=== PATIENT | female | born 1945 | race Caucasian/White ===

== ENCOUNTER → 2017-10-16 14:16 | Outpatient (CLI) | payer MEDICARE, OTHER, SELFPAY ==
--- NOTE | 2017-10-16 14:18 | CA_ITS ---
PROCEDURE: 2-D M-mode and color Doppler study INDICATIONS FOR THE TEST: Chest pain COPD Heart Murmur Tobacco Smoking Palpitations Fatigue Syncope Edema Hypertension+Diabetes Mellitus Rheumatic Fever SOB SCHMID Obesity Hyperlipidemia+ Family History HD Additional History AF, CM, ABN EKG, LBBB. PT SCANNED UNDER THE WRONG NAME , THE NAME ON ECHO IMAGES IS NOT CORRECT. PATIENT INFORMATION HEIGHT: 65 WEIGHT:174 GENDER: Female B/P:119/64 2-D/M-MODE INTERPRETATION: 2-D MEASUREMENTS OBSERVED VALUES IN CMS Right Ventricular Dimension (RVDd) 2.3 Interventricular Septum (Thickness)(IVsd) 2.0 Left Ventricular Internal Dimensions(LVIDd) 3.5 Left Ventricular Posterior Wall (Thickness)(LVPWd) 1.8 Aortic Root 2.6 Aortic Cusp Separation 1.6 Left Atrial Dimensions (LAD) 4.8 2D 1. Left atrium is mildly enlarged, left ventricle is normal size, mild concentric left ventricular hypertrophy, visually estimated ejection fraction 45%, there is abnormal septal motion. 2. The right atrium and right ventricle are normal size and contractility. 3. The aortic valve is minimally thickened and fibrosed. 4. The mitral and tricuspid valve leaflets are minimally thickened. 5. The pulmonic valve is poorly visualized. 6. No significant pericardial effusion noted. DOPPLER INTERROGATION: Doppler interrogation of the aortic, mitral and tricuspid valvular presence of mild mitral and tricuspid regurgitation, calculated ventricular systolic pressure is 40 mmHg consistent mild pulmonary hypertension, grade 1 diastolic dysfunction seen with tissue Doppler evidence of raised left atrial pressure.. CONCLUSION: 1. Mildly left atrium, normal left ventricular size, mild concentric left ventricular hypertrophy, visually estimated ejection fraction 45%, there is abnormal septal motion. Grade 1 diastolic dysfunction seen with tissue Doppler evidence of raised left atrial pressure. 2. Mild mitral and tricuspid regurgitation 3. No significant pericardial effusion noted.
== END ==
PROVIDERS: PCP Physician Assistant; Visit Provider Internal Medicine
DX: I51.9 Heart disease, unspecified (principal); I10 Essential (primary) hypertension; I50.22 Chronic systolic (congestive) heart failure; I48.91 Unspecified atrial fibrillation; I42.9 Cardiomyopathy, unspecified
CPT/HCPCS: 93306

== ENCOUNTER → 2018-10-19 12:37 | Outpatient (CLI) | payer MEDICARE, OTHER, SELFPAY ==
--- NOTE | 2018-10-19 12:44 | CA_ITS ---
PROCEDURE: 2-D M-mode and color Doppler study INDICATIONS FOR THE TEST: Chest pain COPD Heart Murmur Tobacco Smoking Palpitations Fatigue Syncope Edema Hypertension+Diabetes Mellitus Rheumatic Fever SOB SCHMID+Obesity Hyperlipidemia+ Family History HD Additional History CM, 45% EF 10/2017 PATIENT INFORMATION HEIGHT: 67 WEIGHT: 175 GENDER: Female B/P: 132/65 2-D/M-MODE INTERPRETATION: 2-D MEASUREMENTS OBSERVED VALUES IN CMS Right Ventricular Dimension (RVDd) 1.7 Interventricular Septum (Thickness)(IVsd) 0.9 Left Ventricular Internal Dimensions(LVIDd) 4.9 Left Ventricular Posterior Wall (Thickness)(LVPWd) 0.9 Aortic Root 2.6 Aortic Cusp Separation 1.8 Left Atrial Dimensions (LAD) 3.8 2D 1. Left atrium is mildly enlarged, left ventricle is normal size, mild concentric left ventricular hypertrophy, visually estimated ejection fraction 45% with marked abnormal septal motion. 2. The right atrium and right ventricle are normal size and contractility. 3. The aortic valve is minimally thickened and fibrosed. 4. The mitral and tricuspid valve leaflets are minimally thickened. 5. The pulmonic valve is poorly visualized. 6. No significant pericardial effusion noted. DOPPLER INTERROGATION: Doppler interrogation of the aortic, mitral and tricuspid valvular presence of mild mitral and tricuspid regurgitation, calculated right ventricular systolic pressure is 47 mmHg consistent with moderate pulmonary hypertension, grade 1 diastolic dysfunction seen with tissue Doppler evidence of raised left atrial pressure. CONCLUSION: 1. Mildly enlarged left atrium, normal left ventricular size, mild concentric left ventricular hypertrophy, visually estimated ejection fraction 45%, there is abnormal septal motion. Grade 1 diastolic dysfunction seen with tissue Doppler evidence of raised left atrial pressure. 2. Mild mitral and tricuspid regurgitation, calculated right ventricular systolic pressure is 47 mmHg consistent with moderate pulmonary hypertension. 3. No significant pericardial effusion noted.
== END ==
PROVIDERS: PCP Nurse Practitioner Family; Visit Provider Internal Medicine
DX: I10 Essential (primary) hypertension (principal); I27.20 Pulmonary hypertension, unspecified; I42.9 Cardiomyopathy, unspecified; I48.91 Unspecified atrial fibrillation; I50.22 Chronic systolic (congestive) heart failure
CPT/HCPCS: 93306

== ENCOUNTER → 2019-12-19 09:18 | Outpatient (CLI) | payer MEDICARE, OTHER, SELFPAY ==
--- NOTE | 2019-12-19 09:20 | CA_ITS ---
APPROVED REPORT EXAM: Comprehensive 2D, Doppler, and color-flow Echocardiogram [employer]: Soha Liao RDCS Ht: 5 ft 5 in Wt: 174lbs BSA: 1.86 BP: 87351/70 mmHg Indications: CM,HTN,AF,CHF 2D Dimensions LVOT 1.61 cm (M/F) 1.5-2.5 M-Mode Dimensions RVDd 2.39 cm (0.9-2.6) LVDd 4.21 cm (3.5-5.7) LVDs 3.26 cm (3.5-5.7) IVSd 1.10 cm (0.6-1.1) PWd 0.80 cm (0.6-1.1) EF (Teich) 45.80% FS 22.60% EDV (Teich) 79.00 mL ESV (Teich) 42.80 mL LV Diastology E/A Ratio 0.62 Mitral Valve MV A Velocity 99.00 (40-130 cm/s) Left Ventricle Left atrium is mildly enlarged, left ventricle is normal size, mild concentric left ventricular hypertrophy, visually estimated ejection fraction 45 to 50%, there is abnormal septal motion, grade 1 diastolic dysfunction seen without tissue Doppler evidence of raise left atrial pressure. Right Ventricle Right atrium and right ventricular normal size and contractility. Aortic Valve Aortic valve is minimally thickened and calcified, there is no aortic stenosis or aortic insufficiency. Mitral Valve Mitral valve leaflets are minimally thickened, there is mild mitral regurgitation. Tricuspid Valve Tricuspid valve is grossly normal, there is mild tricuspid regurgitation, calculated right ventricular systolic pressure 39 mmHg. Pulmonic Valve Pulmonic valve is poorly visualized. Great Vessels Aortic root is normal size. Pericardium No significant pericardial effusion noted. Conclusion 1. Mildly enlarged left atrium, normal left ventricular size, visually estimated ejection fraction 45 to 50%, there is abnormal septal motion, grade 1 diastolic dysfunction seen without tissue Doppler evidence of raise left atrial pressure. 2. Mild mitral and tricuspid regurgitation, calculated right ventricular systolic pressure 39 mmHg. 3. No significant pericardial effusion noted. Electronically signed by : Eduardo Dey, 12/19/2019 21:35:57
== END ==
PROVIDERS: PCP Nurse Practitioner Family; Visit Provider Nurse Practitioner Family
DX: I10 Essential (primary) hypertension (principal); I27.20 Pulmonary hypertension, unspecified; I42.9 Cardiomyopathy, unspecified; I48.91 Unspecified atrial fibrillation
CPT/HCPCS: 93306

== ENCOUNTER → 2021-04-03 06:41 | Outpatient (CLI) | payer MEDICARE, OTHER, SELFPAY ==
--- NOTE | 2021-04-03 06:43 | CA_ITS ---
APPROVED REPORT EXAM: Comprehensive 2D, Doppler, and color-flow Echocardiogram [employer]: Soha Liao RDCS Ht: 6 ft 5 in Wt: 160lbs BSA: 2.03 BP: 136/75 mmHg Indications: CHF,ABN EKG,CM,LBBB 2D Dimensions LVOT 1.57 cm (M/F) 1.5-2.5 M-Mode Dimensions RVDd 1.85 cm (0.9-2.6) LA Diam 3.83 cm (1.9-4.0) LVDd 4.86 cm (3.5-5.7) Ao Diam 3.51 cm (2.0-3.7) LVDs 4.42 cm (3.5-5.7) IVSd 1.12 cm (0.6-1.1) PWd 1.04 cm (0.6-1.1) EF (Teich) 20.00% FS 9.10% EDV (Teich) 110.70 mL TAPSE 1.87 (<1.7) ESV (Teich) 88.60 mL LV Diastology E Decel Time 207.00 (160-240 msec) E/A Ratio 0.7 MED E' 5.00 (< 7 cm/sec) E'/MED E' Ratio 14.32 (>14) LAT E' 6.50 (<10 cm/sec) E/LAT E' Ratio 11.02 (>14) Mitral Valve MV E Max Arnav. 72.00 (40-130 cm/s) MV A Velocity 104.00 (40-130 cm/s) E/A Ratio 0.69 MV Decel. Time 207.00 (160-240 ms) MV PHT 61.00 ms Tricuspid Valve TR P. Velocity 285.00 cm/s RAP Estimate 10.00 mmHg RVSP 42.50 mmHg Left Ventricle Left atrium is mildly enlarged, left ventricle is normal size, mild concentric left ventricular hypertrophy, there is abnormal septal motion, visually estimated ejection fraction 50% with no obvious regional wall motion abnormality, grade 1 diastolic dysfunction seen without tissue Doppler evidence of raise left atrial pressure. Right Ventricle Right atrium and right ventricle are normal size and contractility. Aortic Valve Aortic valve is thickened and calcified without aortic stenosis, there is trace aortic insufficiency. Mitral Valve Mitral valve is minimally thickened, there is mild mitral regurgitation. Tricuspid Valve Tricuspid valve grossly normal, there is mild tricuspid regurgitation, tricuspid regurgitation jet velocity is inadequate for calculation of the right ventricular systolic pressure. Pulmonic Valve Pulmonic valve is poorly visualized. Great Vessels Aortic root is normal size. Inferior vena cava is poorly visualized. Pericardium No significant pericardial effusion noted. Conclusion 1. Mildly enlarged left atrium, normal left ventricular size, mild concentric left ventricular hypertrophy, visually estimated ejection fraction 50%, there is abnormal septal motion. Grade 1 diastolic dysfunction seen without tissue Doppler evidence of raise left atrial pressure. 2. Mild mitral and tricuspid regurgitation. 3. No significant pericardial effusion noted. Electronically signed by : Eduardo Dey MD 04/03/2021 20:10:13
== END ==
PROVIDERS: PCP Nurse Practitioner Family; Visit Provider Urology
DX: I10 Essential (primary) hypertension (principal); I27.20 Pulmonary hypertension, unspecified; I42.9 Cardiomyopathy, unspecified; I48.91 Unspecified atrial fibrillation
CPT/HCPCS: 93306

== ENCOUNTER → 2021-04-19 12:04 | Outpatient (CLI) | payer MEDICARE, OTHER, SELFPAY ==
[2021-04-19 13:04] LABS: Chloride 104 mmol/L (98-107); Sodium 139 mmol/L (136-145)
[2021-04-19 13:05] LABS: Potassium 4.7 mmoL/L (3.5-5.1)
[2021-04-19 13:07] LABS: Blood Urea Nitrogen 19 mg/dl (7-17); Estimated Glomerular Filt Rate 54 ml/min (>60); GFR (African American) 65 ML/MIN (>60)
[2021-04-19 13:08] LABS: Anion Gap 12.7 mEq/L (5-15); Calcium 9.1 mg/dl (8.4-10.2); Carbon Dioxide 27 mmol/L (22.0-30.0); Glucose 96 mg/dl (74-100)
[2021-04-19 15:40] LABS: Basophils % 0.4 % (0.1-2.0); Eosinophils # 0.1 K/mm3 (0.0-0.4); Eosinophils % 1.8 % (0.1-12.0); Hematocrit 36.1 % (37.0-47.0); Hemoglobin 12.4 g/dL (12.2-16.2); Lymphocytes # 1.9 K/mm3 (0.7-4.5); Lymphocytes % 32.8 % (10-50); Mean Corpuscular HGB Conc 34.3 g/dL (31.8-35.4); Mean Corpuscular Volume 81.4 fl (81-99); Mean Platelet Volume 8.8 fl (7.4-10.4); Monocytes # 0.4 K/mm3 (0.1-1.0); Monocytes % 6.7 % (1.7-9.3); Neutrophils # 3.4 K/mm3 (1.8-7.8); Neutrophils % 58.2 % (37.0-80.0); Platelet Count 352 K/mm3 (142-424); Red Blood Count 4.43 M/mm3 (4.20-5.40); Red Cell Distribution Width 13.4 % (11.5-17.5); White Blood Count 5.8 K/mm3 (4.8-10.8)
== END ==
PROVIDERS: Visit Provider Nurse Practitioner Family
DX: I10 Essential (primary) hypertension (principal); I27.20 Pulmonary hypertension, unspecified; I42.9 Cardiomyopathy, unspecified; I48.91 Unspecified atrial fibrillation; I50.22 Chronic systolic (congestive) heart failure; I51.89 Other ill-defined heart diseases; R93.1 Abnormal findings on diagnostic imaging of heart and coronary circulation; R94.31 Abnormal electrocardiogram [ECG] [EKG]; Z01.812 Encounter for preprocedural laboratory examination; Z11.52 Encounter for screening for COVID-19
CPT/HCPCS: 36415; 80048; 85025; C9803; U0003; U0005

== ENCOUNTER 2021-04-22 08:15 | Day surgery (SDC) | payer MEDICARE, OTHER, SELFPAY ==
[2021-04-22] VITALS (12 sets, daily range): BP systolic 94–180; BP diastolic 52–89; PULSE 62–76; RESP 18; TEMP 36.6–36.7; O2SAT 92–98; BMI 28.3
--- NOTE | 2021-04-22 07:11 | IR_ITS ---
APPROVED REPORT Patient Location: Outpatient [employer] Tutor: ALEJANDRO Hawley RT (R) PROCEDURES Left heart catheterization Left ventriculogram Selective coronary angiogram INDICATION Abnormal echocardiogram, Left bundle branch block Informed consent was obtained prior to the procedure. COMPLICATIONS NONE Estimated Blood Loss: LESS THAN 10 ML TECHNIQUE One percent lidocaine used to anesthetize the right anterior aspect of the wrist. The right radial artery was accessed via the Seldinger technique. A 6 Mont[place]gr[place] sheath was placed in the right radial artery. 2.5 mg of verapamil, 800 mcg of nitroglycerin, 1mg Lidocaine and 5000 U Heparin were given through the arterial sheath. The Poppa catheter was also used to perform left heart catheterization, left ventriculogram and selective coronary angiogram. At the end of the procedure the sheath was removed good hemostasis was achieved using Traclet band, patient was transferred to the postop holding area in stable condition. ANGIOGRAPHIC RESULTS The left main artery Normal The left anterior descending artery Normal The circumflex artery Dominant normal The right coronary artery Nondominant normal The ESTEVEZ ventriculogram reveals Normal 65% The left ventricular end-diastolic pressure 10 mmHg IMPRESSION Normal coronary arteries Normal ejection fraction Normal left ventricular end-diastolic pressure PLAN 1. Consider loop recorder for syncope/dizziness Electronically signed by : Estuardo Tesfaye MD 04/22/2021 09:14:08
== END 2021-04-22 12:48 | disposition home or self-care (01) ==
LOC: CATHLAB 08:17
PROVIDERS: PCP Nurse Practitioner Family; Visit Provider Internal Medicine
DX: R42 Dizziness and giddiness (principal); R93.1 Abnormal findings on diagnostic imaging of heart and coronary circulation; I27.20 Pulmonary hypertension, unspecified; I42.9 Cardiomyopathy, unspecified; I48.91 Unspecified atrial fibrillation; I50.22 Chronic systolic (congestive) heart failure; R94.31 Abnormal electrocardiogram [ECG] [EKG]; I44.7 Left bundle-branch block, unspecified; I11.0 Hypertensive heart disease with heart failure
CPT/HCPCS: 93458; 99152; C1725; C1769; J1644; Q9967

== ENCOUNTER → 2022-02-19 20:02 | Outpatient (CLI) | payer MEDICARE, OTHER, SELFPAY ==
[2022-02-13 09:59] LABS: Alanine Aminotransferase 21 U/L (12-78); Albumin Level 4.4 g/dl (3.5-5.0); Albumin/Globulin Ratio 1.4 (1.1-1.8); Alkaline Phosphatase 122 U/L (38-126); Anion Gap 17.6 mEq/L (5-15); Aspartate Amino Transferase 29 U/L (14-36); Bilirubin,Total 1.1 mg/dl (0.2-1.3); Blood Urea Nitrogen 19 mg/dl (7-17); Calcium 9.2 mg/dl (8.4-10.2); Carbon Dioxide 25 mmol/L (22.0-30.0); Chloride 102 mmol/L (98-107); Chol/HDL Ratio 2.9 (1-3.5); Cholesterol 181 mg/dl (140-200); Estimated Glomerular Filt Rate 61 ml/min (>60); GFR (African American) 74 ML/MIN (>60); Globulin 3.2 g/dL (1.3-3.2); Glucose 107 mg/dl (74-100); HDL Cholesterol 62 mg/dl (40-60); Potassium 4.6 mmoL/L (3.5-5.1); Sodium 140 mmol/L (136-145); Total Protein,Serum 7.6 g/dl (6.3-8.2); Triglycerides 126 mg/dl (30-150); VLDL Cholesterol 25 mg/dL (0-40)
[2022-02-13 10:09] LABS: Direct LDL Cholesterol 77.42 mg/dL (100-129)
[2022-02-13 10:29] LABS: Thyroid Stimulating Hormone 1.43 uIU/mL (0.465-4.68)
[2022-02-19 20:39] LABS: Basophils % 0.7 % (0.1-2.0); Eosinophils # 0.1 K/mm3 (0.0-0.4); Eosinophils % 2.3 % (0.1-12.0); Hematocrit 38.6 % (37.0-47.0); Hemoglobin 12.5 g/dL (12.2-16.2); Lymphocytes # 1.9 K/mm3 (0.7-4.5); Lymphocytes % 30.1 % (10-50); Mean Corpuscular HGB Conc 32.4 g/dL (31.8-35.4); Mean Corpuscular Hemoglobin 26.9 pg (27.0-31.2); Mean Corpuscular Volume 83.2 fl (81-99); Mean Platelet Volume 9.6 fl (7.4-10.4); Monocytes # 0.4 K/mm3 (0.1-1.0); Monocytes % 6.5 % (1.7-9.3); Neutrophils # 3.7 K/mm3 (1.8-7.8); Neutrophils % 60.5 % (37.0-80.0); Platelet Count 400 K/mm3 (142-424); Red Blood Count 4.64 M/mm3 (4.20-5.40); Red Cell Distribution Width 13.4 % (11.5-17.5); White Blood Count 6.2 K/mm3 (4.8-10.8)
[2022-02-19 21:27] LABS: Hemoglobin A1C 5.5 % (4.0-6.0)
== END ==
PROVIDERS: PCP Family Medicine; Visit Provider Family Medicine
DX: I10 Essential (primary) hypertension (principal); Z79.899 Other long term (current) drug therapy
CPT/HCPCS: 80053; 80061; 83036; 84443; 85025

== ENCOUNTER → 2022-09-04 09:44 | Outpatient (CLI) | payer MEDICARE, OTHER, SELFPAY ==
[2022-09-04 10:19] LABS: Basophils % 0.2 % (0.1-2.0); Eosinophils # 0.1 K/mm3 (0.0-0.4); Eosinophils % 0.7 % (0.1-12.0); Hematocrit 34.6 % (37.0-47.0); Hemoglobin 11.3 g/dL (12.2-16.2); Lymphocytes # 0.9 K/mm3 (0.7-4.5); Mean Corpuscular HGB Conc 32.6 g/dL (31.8-35.4); Mean Corpuscular Hemoglobin 26.8 pg (27.0-31.2); Mean Platelet Volume 7.3 fl (7.4-10.4); Monocytes # 0.7 K/mm3 (0.1-1.0); Monocytes % 7.6 % (1.7-9.3); Neutrophils % 81.4 % (37.0-80.0); Platelet Count 278 K/mm3 (142-424); Red Blood Count 4.22 M/mm3 (4.20-5.40); Red Cell Distribution Width 13.2 % (11.5-17.5); White Blood Count 8.6 K/mm3 (4.8-10.8)
[2022-09-04 11:50] LABS: Chloride 93 mmol/L (98-107); Potassium 4.1 mmoL/L (3.5-5.1); Sodium 133 mmol/L (136-145)
[2022-09-04 11:52] LABS: Alanine Aminotransferase 32 U/L (12-78); Albumin Level 4.3 g/dl (3.5-5.0); Albumin/Globulin Ratio 1.3 (1.1-1.8); Alkaline Phosphatase 77 U/L (38-126); Anion Gap 18.1 mEq/L (5-15); Aspartate Amino Transferase 45 U/L (14-36); Bilirubin,Total 1.3 mg/dl (0.2-1.3); Blood Urea Nitrogen 25 mg/dl (7-17); Carbon Dioxide 26 mmol/L (22.0-30.0); Estimated Glomerular Filt Rate 40 ml/min (>60); GFR (African American) 48 ML/MIN (>60); Globulin 3.2 g/dL (1.3-3.2); Total Protein,Serum 7.5 g/dl (6.3-8.2)
[2022-09-04 11:53] LABS: Calcium 8.6 mg/dl (8.4-10.2); Chol/HDL Ratio 2.4 (1-3.5); Cholesterol 168 mg/dl (140-200); Glucose 110 mg/dl (74-100); HDL Cholesterol 70 mg/dl (40-60); Triglycerides 108 mg/dl (30-150); VLDL Cholesterol 22 mg/dL (0-40)
[2022-09-04 12:04] LABS: Direct LDL Cholesterol 68.65 mg/dL (100-129)
== END ==
PROVIDERS: PCP Family Medicine; Visit Provider Family Medicine
DX: E78.5 Hyperlipidemia, unspecified (principal); I10 Essential (primary) hypertension; I27.20 Pulmonary hypertension, unspecified; R42 Dizziness and giddiness; R41.0 Disorientation, unspecified
CPT/HCPCS: 36415; 80053; 80061; 85025

== ENCOUNTER → 2022-09-05 16:38 | Outpatient (CLI) | payer MEDICARE, OTHER, SELFPAY ==
[2022-09-05 17:10] LABS: Microscopic, Urine URINE MICROSCOPIC (MICROSCOPIC)
[2022-09-05 18:46] LABS: Appearance,Urine SL CLOUDY (Clear); Blood, Urine 2+ (Negative); Color,Urine DK YELLOW (Yellow); Glucose,Urine (UA) Negative (Negative); Ketones,Urine TRACE (Negative); Leukocyte Esterase,Urine 1+ (Negative); Nitrate,Urine Negative (Negative); PH,Urine 5.5 (5.0-8.5); Protein,Urine 2+ (Negative); Specific Gravity, Urine >= 1.030 (1.005-1.030); Urobilinogen,Urine 0.2 EU/dl (0.2)
[2022-09-05 18:52] LABS: Bilirubin,Urine 1+ (Negative)
[2022-09-05 18:53] LABS: Amorphous Sediment,Urine Trace /lpf; Bacteria,Urine 1+ /lpf
== END ==
PROVIDERS: PCP Family Medicine; Visit Provider Family Medicine
DX: E78.5 Hyperlipidemia, unspecified (principal); I10 Essential (primary) hypertension; I27.20 Pulmonary hypertension, unspecified; R42 Dizziness and giddiness; B96.29 Other Escherichia coli [E. coli] as the cause of diseases classified elsewhere; R82.90 Unspecified abnormal findings in urine
CPT/HCPCS: 81001; 87086; 87088; 87186

== ENCOUNTER → 2023-02-03 09:27 | Outpatient (CLI) | payer MEDICARE, OTHER, SELFPAY ==
[2023-02-03 10:03] LABS: Basophils % 0.2 % (0.1-2.0); Eosinophils # 0.1 K/mm3 (0.0-0.4); Eosinophils % 1.1 % (0.1-12.0); Hematocrit 36.1 % (37.0-47.0); Hemoglobin 11.7 g/dL (12.2-16.2); Lymphocytes # 1.6 K/mm3 (0.7-4.5); Lymphocytes % 17.9 % (10-50); Mean Corpuscular HGB Conc 32.3 g/dL (31.8-35.4); Mean Corpuscular Hemoglobin 24.4 pg (27.0-31.2); Mean Corpuscular Volume 75.5 fl (81-99); Mean Platelet Volume 8.1 fl (7.4-10.4); Monocytes # 0.5 K/mm3 (0.1-1.0); Monocytes % 5.3 % (1.7-9.3); Neutrophils # 6.9 K/mm3 (1.8-7.8); Neutrophils % 75.4 % (37.0-80.0); Platelet Count 466 K/mm3 (142-424); Red Blood Count 4.78 M/mm3 (4.20-5.40); Red Cell Distribution Width 15.1 % (11.5-17.5); White Blood Count 9.1 K/mm3 (4.8-10.8)
[2023-02-03 11:01] LABS: Free T4 (Free Thyroxine) 1.08 ng/dl (0.78-2.19)
[2023-02-03 11:25] LABS: Chloride 105 mmol/L (98-107); Potassium 4.6 mmoL/L (3.5-5.1); Sodium 140 mmol/L (136-145)
[2023-02-03 11:27] LABS: Bilirubin,Unconjugated 0.6 mg/dL (0.0-1.1); Blood Urea Nitrogen 20 mg/dl (7-17); Estimated Glomerular Filt Rate 61 ml/min (>60); GFR (African American) 73 ML/MIN (>60)
[2023-02-03 11:28] LABS: Alanine Aminotransferase 17 U/L (12-78); Albumin Level 3.8 g/dl (3.5-5.0); Alkaline Phosphatase 89 U/L (38-126); Anion Gap 12.6 mEq/L (5-15); Aspartate Amino Transferase 22 U/L (14-36); Bilirubin,Direct 0.2 mg/dl (0.0-0.4); Bilirubin,Indirect 0.6 mg/dL (0.0-0.9); Bilirubin,Total 0.8 mg/dl (0.2-1.3); Calcium 8.7 mg/dl (8.4-10.2); Carbon Dioxide 27 mmol/L (22.0-30.0); Chol/HDL Ratio 3.3 (1-3.5); Cholesterol 139 mg/dl (140-200); Glucose 107 mg/dl (74-100); HDL Cholesterol 42 mg/dl (40-60); Total Protein,Serum 7.5 g/dl (6.3-8.2); Triglycerides 114 mg/dl (30-150); VLDL Cholesterol 23 mg/dL (0-40)
== END ==
PROVIDERS: PCP Family Medicine; Visit Provider Nurse Practitioner
DX: E78.5 Hyperlipidemia, unspecified (principal); I42.9 Cardiomyopathy, unspecified; I48.91 Unspecified atrial fibrillation; I50.22 Chronic systolic (congestive) heart failure; I11.0 Hypertensive heart disease with heart failure
CPT/HCPCS: 36415; 80048; 80061; 80076; 83735; 84439; 84443; 85025

== ENCOUNTER 2023-08-18 11:11 | Outpatient (CLI) | payer MEDICARE, OTHER, SELFPAY ==
--- NOTE | 2023-08-18 11:18 | XR_ITS ---
FINAL REPORT CLINICAL HISTORY: left knee effusion nki FINDINGS: Left knee Three views were obtained. There is no acute fracture or dislocation. The joint spaces appear normal. No joint effusion is identified. No soft tissue abnormality is identified. IMPRESSION: No acute process. Reviewed, Interpreted and Dictated by Jluis Teixeiar MD Transcribed by Terrie Ramirez Authenticated and [facility][1]
[2023-08-18 12:03] LABS: Basophils % 0.3 % (0.1-2.0); Eosinophils # 0.1 K/mm3 (0.0-0.4); Eosinophils % 0.7 % (0.1-12.0); Hematocrit 33.5 % (37.0-47.0); Lymphocytes # 1.9 K/mm3 (0.7-4.5); Lymphocytes % 19.1 % (10-50); Mean Corpuscular HGB Conc 32.9 g/dL (31.8-35.4); Mean Corpuscular Hemoglobin 26.7 pg (27.0-31.2); Mean Corpuscular Volume 81.1 fl (81-99); Monocytes # 0.9 K/mm3 (0.1-1.0); Monocytes % 8.8 % (1.7-9.3); Platelet Count 429 K/mm3 (142-424); Red Blood Count 4.13 M/mm3 (4.20-5.40); Red Cell Distribution Width 13.4 % (11.5-17.5); White Blood Count 9.9 K/mm3 (4.8-10.8)
[2023-08-18 12:46] LABS: Alanine Aminotransferase 14 U/L (12-78); Albumin Level 4.1 g/dl (3.5-5.0); Alkaline Phosphatase 75 U/L (38-126); Anion Gap 12.9 mEq/L (5-15); Aspartate Amino Transferase 21 U/L (14-36); Bilirubin,Direct 0.1 mg/dl (0.0-0.4); Bilirubin,Indirect 1.2 mg/dL (0.0-0.9); Bilirubin,Total 1.3 mg/dl (0.2-1.3); Bilirubin,Unconjugated 1.2 mg/dL (0.0-1.1); Blood Urea Nitrogen 23 mg/dl (7-17); Calcium 9.2 mg/dl (8.4-10.2); Carbon Dioxide 27 mmol/L (22.0-30.0); Chloride 105 mmol/L (98-107); Chol/HDL Ratio 2.1 (1-3.5); Cholesterol 155 mg/dl (140-200); Estimated Glomerular Filt Rate 54 ml/min (>60); GFR (African American) 65 ML/MIN (>60); Glucose 109 mg/dl (74-100); HDL Cholesterol 73 mg/dl (40-60); Magnesium 2.3 mg/dl (1.6-2.3); Potassium 3.9 mmoL/L (3.5-5.1); Sodium 141 mmol/L (136-145); Total Protein,Serum 7.6 g/dl (6.3-8.2); Triglycerides 83 mg/dl (30-150); VLDL Cholesterol 17 mg/dL (0-40)
[2023-08-18 12:57] LABS: Direct LDL Cholesterol 57.52 mg/dL (100-129)
[2023-08-18 13:17] LABS: Thyroid Stimulating Hormone 1.36 uIU/mL (0.465-4.68)
== END 2023-08-18 23:59 | disposition home or self-care (01) ==
LOC: LAB 11:13
PROVIDERS: PCP Family Medicine; Visit Provider Nurse Practitioner
DX: M25.562 Pain in left knee (principal); E78.5 Hyperlipidemia, unspecified; I44.7 Left bundle-branch block, unspecified; I11.0 Hypertensive heart disease with heart failure; I50.22 Chronic systolic (congestive) heart failure; R94.31 Abnormal electrocardiogram [ECG] [EKG]; I27.20 Pulmonary hypertension, unspecified; I42.8 Other cardiomyopathies; I48.91 Unspecified atrial fibrillation
CPT/HCPCS: 36415; 73562; 80048; 80061; 80076; 83735; 84439; 84443; 85025

== ENCOUNTER 2023-09-08 07:43 | Outpatient (CLI) | payer MEDICARE, OTHER, SELFPAY ==
--- NOTE | 2023-09-08 07:51 | CA_ITS ---
APPROVED REPORT EXAM: Comprehensive 2D, Doppler, and color-flow Echocardiogram [employer]: GAVIOTA Rangel, RVS Ht: 5 ft 5 in Wt: 151lbs BSA: 1.76 BP: 123/74 mmHg Indications: CHF, CM, LBBB, Pulmoanry HTN 2D Dimensions IVSd 0.99 cm LVEF (Visual) 56.20 % PWd 1.18 cm LA Volume 72.00 mL LVDd 5.55 cm LA Volume Index 40.938120 mL/m2 (M/F) 16-34 LVDs 3.90 cm Left Atrium 3.70 cm M-Mode Dimensions LA Diam 3.35 cm (1.9-4.0) EPSs 1.60 cm TAPSE 2.30 (<1.7) LV Diastology E Decel Time 170 (160-240 msec) E/A Ratio 0.54 MED A' 10.50 cm/s LAT A' 16.30 cm/s Aortic Valve KATARZYNA Index 1.47 cm2/m2 AoV Peak Arnav. 167.0 (50-130 cm/s) AO Peak GR. 11.20 mmHg AO Mean GR. 5.50 (<5 mmHg) AO VTI 34.4 (18-25 cm) KATARZYNA (VTI) 2.64 (2.5-4.5 cm2) Mitral Valve MV A Velocity 140.0 (40-130 cm/s) E/A Ratio 0.54 Pulmonary Valve PV Peak Velocity 91.0 (50-150 cm/s) Tricuspid Valve TR P. Velocity 270.00 cm/s RAP Estimate 10.00 mmHg RVSP 39.10 mmHg Left Ventricle The left ventricle is normal size. The left ventricular systolic function is low-normal. There is increased LV wall thickness. The septum is asynchronous. Diastolic function is indeterminate. LVEF is 50-55% Right Ventricle The right ventricle is normal size. The right ventricular systolic function is normal. Atria Left atrium is moderately dilated. Right atrium is moderately dilated. There is no Doppler evidence of interatrial shunt. Aortic Valve The aortic valve is mildly thickened. There is no aortic valvular stenosis. Trace aortic regurgitation. Mitral Valve The mitral valve is mildly thickened. No evidence of mitral valve stenosis. Mild mitral regurgitation. Tricuspid Valve The tricuspid valve leaflets are thin and pliable. Mild tricuspid regurgitation. RVSP is 25-30 mmHg. Pulmonic Valve The pulmonary valve is normal in structure. Trace pulmonic regurgitation. Great Vessels The aortic root is normal in size. The ascending aorta is normal in size. IVC is normal in size and collapses >50% with inspiration. Pericardium There is no pericardial effusion. Other Information Study Quality: Fair Conclusion Normal biventricular systolic function. Asynchronous septum. Moderate biatrial dilation. Mild MR, mild TR. Electronically signed by : Tanesha Caal MD 09/11/2023 19:31:39
== END 2023-09-08 23:59 | disposition home or self-care (01) ==
LOC: RT 07:45
PROVIDERS: PCP Family Medicine; Visit Provider Nurse Practitioner
DX: I50.22 Chronic systolic (congestive) heart failure (principal); E78.5 Hyperlipidemia, unspecified; I44.7 Left bundle-branch block, unspecified; R94.31 Abnormal electrocardiogram [ECG] [EKG]; I27.20 Pulmonary hypertension, unspecified; I42.8 Other cardiomyopathies; I48.91 Unspecified atrial fibrillation; I11.0 Hypertensive heart disease with heart failure
CPT/HCPCS: 93306

== ENCOUNTER 2024-08-22 17:43 | Outpatient (CLI) | payer MEDICARE, OTHER, SELFPAY ==
[2024-08-22 19:37] LABS: Basophils % 0.4 % (0.1-2.0); Eosinophils # 0.1 Kmm3 (0.0-0.4); Eosinophils % 2.5 % (0.1-12.0); Hematocrit 36.1 % (37.0-47.0); Hemoglobin 11.3 g/dL (12.2-16.2); Lymphocytes # 1.9 K/mm3 (0.7-4.5); Lymphocytes % 33.2 % (10-50); Mean Corpuscular HGB Conc 31.3 g/dL (31.8-35.4); Mean Corpuscular Hemoglobin 26.8 pg (27.0-31.2); Mean Corpuscular Volume 85.5 fl (81-99); Mean Platelet Volume 9.8 fl (7.4-10.4); Monocytes # 0.5 K/mm3 (0.1-1.0); Monocytes % 9.3 % (1.7-9.3); Neutrophils # 3.1 K/mm3 (1.8-7.8); Neutrophils % 54.4 % (37.0-80.0); Nucleated Red Blood Cells # 0 10^3/uL; Nucleated Red Blood Cells % 0 %; Platelet Count 327 K/mm3 (142-424); Red Blood Count 4.22 M/mm3 (4.20-5.40); Red Cell Distribution Width 12.9 % (11.5-17.5); Red Cell Distribution Width-SD 39.8 fL; White Blood Count 5.6 K/mm3 (4.8-10.8)
[2024-08-22 20:12] LABS: Albumin Level 4.5 g/dl (3.5-5.0); Chloride 107 mmol/L (98-107); Sodium 139 mmol/L (136-145)
[2024-08-22 20:13] LABS: Potassium 4.5 mmoL/L (3.5-5.1)
[2024-08-22 20:15] LABS: Alanine Aminotransferase 20 U/L (12-78); Alkaline Phosphatase 69 U/L (38-126); Anion Gap 12.5 mEq/L (5-15); Aspartate Amino Transferase 27 U/L (14-36); Bilirubin,Direct 0.2 mg/dl (0.0-0.4); Bilirubin,Indirect 1.1 mg/dL (0.0-0.9); Bilirubin,Total 1.3 mg/dl (0.2-1.3); Bilirubin,Unconjugated 1.1 mg/dL (0.0-1.1); Blood Urea Nitrogen 26 mg/dl (7-17); Calcium 9.1 mg/dl (8.4-10.2); Carbon Dioxide 24 mmol/L (22.0-30.0); Cholesterol 188 mg/dl (140-200); Estimated Glomerular Filt Rate 53 ml/min (>60); GFR (African American) 65 ML/MIN (>60); Glucose 90 mg/dl (74-100); Total Protein,Serum 7.7 g/dl (6.3-8.2); Triglycerides 151 mg/dl (30-150); VLDL Cholesterol 30 mg/dL (0-40)
[2024-08-22 20:16] LABS: Chol/HDL Ratio 2.7 (1-3.5); HDL Cholesterol 69 mg/dl (40-60)
[2024-08-22 20:26] LABS: Direct LDL Cholesterol 63.86 mg/dL (100-129)
[2024-08-22 20:46] LABS: Thyroid Stimulating Hormone 1.91 uIU/mL (0.465-4.68)
[2024-08-22 21:02] LABS: Hepatitis C Ab Qual. W/ RFX NEGATIVE (Negative)
[2024-08-22 23:41] LABS: Free T4 (Free Thyroxine) 1.05 ng/dl (0.78-2.19)
[2024-08-25 11:15] LABS: HIV Combo NEGATIVE (Negative)
== END 2024-08-22 23:59 | disposition home or self-care (01) ==
LOC: LAB.DROPOF 17:44
PROVIDERS: Family Medicine; PCP Physician Assistant; Visit Provider Physician Assistant
DX: E78.49 Other hyperlipidemia (principal); Z01.810 Encounter for preprocedural cardiovascular examination; I10 Essential (primary) hypertension; E78.5 Hyperlipidemia, unspecified; Z11.4 Encounter for screening for human immunodeficiency virus [HIV]; Z11.59 Encounter for screening for other viral diseases
CPT/HCPCS: 80048; 80061; 80076; 83735; 84439; 84443; 85025; 86803; 87389